=== PATIENT | female | born 1990 | race African-American/Black ===

== ENCOUNTER 2020-03-25 14:15 | Inpatient (IN) ==
[2020-03-25] MEDS ORDERED: ONDANSETRON 4 MG/2 ML VIAL IV PRN (14:21)
[2020-03-25 14:51] LABS: Basophils % 0.3 % (0.0-0.8); Eosinophils % 0.6 % (0.00-10.9); Hematocrit 27.9 VOL% (35.7-47.0); Hemoglobin 9.6 GM/DL (12.0-16.0); Immature Granulocytes % 2.2 %; Immature Granulocytes Absolute 0.15 #; Lymphocytes # 1.5 10*3/uL (1.4-4.0); Lymphocytes % 22.7 % (21.3-54.2); Mean Corpuscular HGB Conc 34.4 GM/DL (32-36); Mean Corpuscular Volume 84.8 FL (87-102); Mean Platelet Volume 11.5 FL (9.6-12.0); Monocytes % 6.9 % (1.7-12.7); Neutrophils % 67.3 % (38.7-73.9); Platelet Count 130 T/CUMM (130-400); Red Blood Count 3.29 MC/CUMM (3.8-5.5); Red Cell Distribution Width 14.2 % (9.3-17.3); White Blood Count 6.7 T/CUMM (4-12)
[2020-03-25] MEDS ORDERED: BUTORPHANOL 2 MG/ML VIAL IV PRN (15:17)
[2020-03-25] MEDS ORDERED: BUTORPHANOL 1 MG/ML VIAL IV PRN (15:17)
[2020-03-25 15:22] LABS: Band Neutrophils 1 % (0-10); Lymphocytes 22 % (20-55); Platelet Estimate Adequate; Segmented Neutrophils 71 % (50-85); Total Cells Counted 100
[2020-03-25] MEDS ORDERED: FAMOTIDINE 20 MG/2 ML VIAL IV ONE (17:02)
[2020-03-25] MEDS ORDERED: ePHEDrine 50 MG/ML VIAL IV PRN (17:02)
[2020-03-25] MEDS ORDERED: diphenhydrAMINE 50 MG/1 ML VIAL IV PRN ×2 (17:02)
[2020-03-25] MEDS ORDERED: MEPERIDINE 50 MG/1 ML VIAL IM ONE ×2 (17:02→17:20)
[2020-03-25] MEDS ORDERED: NALOXONE 0.4 MG/ML VIAL IV PRN (17:02)
[2020-03-25] MEDS ORDERED: ONDANSETRON 4 MG/2 ML VIAL IV ONE (17:02)
[2020-03-25] MEDS ORDERED: CITRIC ACID/SODIUM CITRATE 30 ML UDCUP PO ONE (17:02)
[2020-03-25] MEDS ORDERED: hydrOXYzine HCL 25 MG/1 ML VIAL IM PRN (17:02)
[2020-03-25] MEDS ORDERED: PROMETHAZINE 25 MG/1 ML VIAL IM ONE ×2 (17:02)
[2020-03-25] MEDS ORDERED: fentaNYL 2 MCG/ROPIV 0.2% EPID 100 ML EPIDURAL SCH (17:30)
[2020-03-25 18:25] LABS: RPR Confirm - Less than 1 yr REACTIVE (Nonreactive)
[2020-03-25 20:08] LABS: Bilirubin,Urine Negative (Negative); Blood, Urine Negative (Negative); Glucose,Urine (UA) Negative (Negative); Hyaline Casts,Urine 1 /LPF (0-3); Ketones,Urine 20 mg/dL (Negative); Mucus,Urine Occasional /LPF (Occasional); Nitrite,Urine Negative (Negative); Protein,Urine Negative; RBC,Urine 1 /HPF (0-4); Squamous Epithelial Cell,Urine Occasional /HPF (0-10); Urine Appearance CLEAR (Clear); Urine Color Yellow (Yellow); Urine Specific Gravity 1.012 (1.001-1.035); WBC,Urine 1 /HPF (0-6)
[2020-03-26] MEDS ORDERED: TERBUTALINE 1 MG/1 ML VIAL ONE (01:49)
[2020-03-26] MEDS ORDERED: OXYTOCIN/LR 20 UNIT/1,000 ML BAG IV ONE ×3 (01:50→05:09)
[2020-03-26 02:31] LABS: Cord Venous Blood HCO3 18.7 MMOL/L; Cord Venous Blood PCO2 44.9 MMHG; Cord Venous Blood PO2 34.7
[2020-03-26] MEDS ORDERED: TERBUTALINE 1 MG/1 ML VIAL SUBCUT ONE (02:32)
[2020-03-26] MEDS ORDERED: LACTATED RINGERS 1,000 ML IV ONE (02:33)
[2020-03-26] MEDS ORDERED: HYDROCORTISONE 2.5% RECTAL CREAM 30 GM TUBE TOP PRN (05:09)
[2020-03-26] MEDS ORDERED: LANOLIN 50% CREAM 0.3 OZ TUBE TOP PRN (05:09)
[2020-03-26] MEDS ORDERED: MEASLES/MUMPS/RUBELLA VACCINE 0.5 ML VIAL SUBCUT ONE (05:09)
[2020-03-26] MEDS ORDERED: oxyCODONE/ACETAMINOPHEN 5-325 MG TABLET PO PRN (05:09)
[2020-03-26] MEDS ORDERED: ACETAMINOPHEN 325 MG TABLET PO PRN (05:09)
[2020-03-26] MEDS ORDERED: BISACODYL 10 MG SUPP RECTAL PRN (05:09)
[2020-03-26] MEDS ORDERED: RHO(D) IMMUNE GLOBULIN 300 MCG SYRINGE IM ONE (05:09)
[2020-03-26] MEDS ORDERED: WITCH HAZEL PADS 100/JAR TOP PRN (05:09)
[2020-03-26] MEDS ORDERED: DIPH/TET/ACEL PERT BOOSTER VACCINE 0.5 ML VIAL IM ONE (05:09)
[2020-03-26] MEDS ORDERED: BENZOCAINE 20%/MENTHOL 0.5% SPRAY 56 GM CAN TOP PRN (05:09)
[2020-03-26] MEDS: IBUPROFEN 800 MG TABLET PO PRN ×2 (05:30→17:40)
[2020-03-26] MEDS: DOCUSATE SODIUM 100 MG CAPSULE PO SCH ×2 (10:14→20:34)
[2020-03-26] MEDS: oxyCODONE/ACETAMINOPHEN 5-325 MG TABLET PO PRN (17:41)
[2020-03-27 06:55] LABS: Basophils % 0.2 % (0.0-0.8); Eosinophils % 0.4 % (0.00-10.9); Hematocrit 29.2 VOL% (35.7-47.0); Hemoglobin 9.8 GM/DL (12.0-16.0); Immature Granulocytes % 1.6 %; Immature Granulocytes Absolute 0.17 #; Lymphocytes # 1.4 10*3/uL (1.4-4.0); Lymphocytes % 13.4 % (21.3-54.2); Mean Corpuscular HGB Conc 33.6 GM/DL (32-36); Mean Corpuscular Volume 87.2 FL (87-102); Mean Platelet Volume 11.4 FL (9.6-12.0); Monocytes % 6.9 % (1.7-12.7); NRBC # 0.02 10*3/uL; Neutrophils % 77.5 % (38.7-73.9); Platelet Count 128 T/CUMM (130-400); Red Blood Count 3.35 MC/CUMM (3.8-5.5); Red Cell Distribution Width 14.5 % (9.3-17.3); White Blood Count 10.4 T/CUMM (4-12)
[2020-03-27 07:45] LABS: Platelet Estimate Adequate
[2020-03-27 07:47] LABS: Anisocytosis 2+
[2020-03-27] MEDS ORDERED: INFLUENZA VIRUS VACCINE 0.5 ML SYRINGE IM ONE (08:00)
[2020-03-27] MEDS: DOCUSATE SODIUM 100 MG CAPSULE PO SCH ×2 (09:07→20:05)
[2020-03-27] MEDS ORDERED: oxyCODONE/ACETAMINOPHEN 5-325 MG TABLET PO ONE (20:01)
[2020-03-27] MEDS: IBUPROFEN 800 MG TABLET PO PRN (20:04)
[2020-03-28] MEDS: IBUPROFEN 800 MG TABLET PO PRN (02:37)
[2020-03-28] MEDS: oxyCODONE/ACETAMINOPHEN 5-325 MG TABLET PO PRN (02:37)
[2020-03-28 08:59] VITALS: BP 131/89
[2020-03-28] MEDS ORDERED: INFLUENZA VIRUS VACCINE 0.5 ML SYRINGE IM ONE (09:17)
[2020-03-28] MEDS ORDERED: DIPH/TET/ACEL PERT BOOSTER VACCINE 0.5 ML VIAL IM ONE (09:17)
[2020-03-28] MEDS: DOCUSATE SODIUM 100 MG CAPSULE PO SCH (09:18)
== END 2020-03-28 12:50 | disposition home or self-care (01) | DRG 560 ==
LOC: N.LD 14:15 → N.OB 03-26 05:11
PROVIDERS: ADMIT Obstetrics & Gynecology; ATTEND Obstetrics & Gynecology

== ENCOUNTER 2021-04-27 09:52 | Inpatient (IN) ==
[2021-04-27] MEDS ORDERED: LIDOCAINE 1% 50 ML VIAL MISC INJ ONE (10:15)
[2021-04-27] MEDS ORDERED: MEPERIDINE 50 MG/1 ML VIAL IV PRN (10:15)
[2021-04-27] MEDS ORDERED: ONDANSETRON 4 MG/2 ML VIAL IV PRN (10:15)
[2021-04-27] MEDS ORDERED: BUTORPHANOL 2 MG/ML VIAL IV PRN (10:15)
[2021-04-27] MEDS ORDERED: hydrOXYzine HCL 25 MG/1 ML VIAL IM PRN (10:20)
[2021-04-27] MEDS ORDERED: ePHEDrine 50 MG/ML VIAL IV PRN (10:20)
[2021-04-27] MEDS ORDERED: diphenhydrAMINE 50 MG/1 ML VIAL IV PRN ×2 (10:20)
[2021-04-27] MEDS ORDERED: FAMOTIDINE 20 MG/2 ML VIAL IV ONE (10:20)
[2021-04-27] MEDS ORDERED: PROMETHAZINE 25 MG/1 ML VIAL IM ONE (10:20)
[2021-04-27] MEDS ORDERED: CITRIC ACID/SODIUM CITRATE 30 ML UDCUP PO ONE (10:20)
[2021-04-27] MEDS ORDERED: NALOXONE 0.4 MG/ML VIAL IV PRN (10:20)
[2021-04-27] MEDS ORDERED: LACTATED RINGERS 1,000 ML IV ONE (10:20)
[2021-04-27] MEDS ORDERED: LACTATED RINGERS 1,000 ML IV SCH ×2 (10:30→12:30)
[2021-04-27] MEDS ORDERED: fentaNYL 2 MCG/ROPIV 0.2% EPID 100 ML EPIDURAL SCH (10:30)
[2021-04-27 10:34] LABS: Basophils % 0.4 % (0.0-0.8); Eosinophils # 0.1 10*3/uL (0.0-0.87); Eosinophils % 0.9 % (0.00-10.9); Hematocrit 30.3 VOL% (35.7-47.0); Hemoglobin 9.8 GM/DL (12.0-16.0); Immature Granulocytes % 5.7 %; Lymphocytes # 1.7 10*3/uL (1.4-4.0); Lymphocytes % 23.9 % (21.3-54.2); Mean Corpuscular HGB Conc 32.3 GM/DL (32-36); Mean Corpuscular Volume 85.8 FL (87-102); Mean Platelet Volume 12.3 FL (9.6-12.0); Monocytes % 7.7 % (1.7-12.7); NRBC # 0.02 10*3/uL; Neutrophils % 61.4 % (38.7-73.9); Platelet Count 117 T/CUMM (130-400); Red Blood Count 3.53 MC/CUMM (3.8-5.5); Red Cell Distribution Width 14.7 % (9.3-17.3)
[2021-04-27 10:46] LABS: INR 0.9; PT Patient Result 9.8 SECS (10.5-12.0); Partial Thromboplastin Time 23.6 SECS (23.8-32.1)
[2021-04-27] MEDS ORDERED: AMPICILLIN INJ 2,000 MG in SODIUM CHLORIDE 0.9% 100 ML IV ONE (10:48)
[2021-04-27 10:51] LABS: Albumin 2.8 G/DL (3.4-5.0); Bilirubin,Direct 0.12 MG/DL (0.0-0.20); Bilirubin,Total 0.5 MG/DL (0.20-1.00); Calcium 8.9 MG/DL (8.5-10.1); Osmolality,Calculated 267.1 MOS/KG (273-304); Potassium 3.8 MMOL/L (3.5-5.1); Total Protein 7.4 G/DL (6.4-8.2); Uric Acid 4.9 MG/DL (2.6-6.0)
[2021-04-27] MEDS ORDERED: hydrALAZINE 20 MG/1 ML VIAL IV ONE (10:51)
[2021-04-27] MEDS ORDERED: SODIUM CHLORIDE 0.9% 100 ML IV ONE (10:57)
[2021-04-27 11:04] LABS: Anisocytosis 1+; Band Neutrophils 4 % (0-10); Eosinophils 3 % (0-10); Lymphocytes 27 % (20-55); Metamyelocytes 1 %; Platelet Estimate Adequate; Segmented Neutrophils 59 % (50-85); Tear Drop Cells Few; Total Cells Counted 100
[2021-04-27 11:24] LABS: Bilirubin,Urine Negative (Negative); Blood, Urine Moderate mg/dL (Negative); Glucose,Urine (UA) Negative (Negative); Ketones,Urine Negative (Negative); Nitrite,Urine Negative (Negative); Protein,Urine Negative; RBC,Urine 6 /HPF (0-4); Squamous Epithelial Cell,Urine Few /HPF (0-10); Urine Appearance CLEAR (Clear); Urine Color Yellow (Yellow); Urine Specific Gravity 1.011 (1.001-1.035); Urine Urobilinogen < 2.0 EU/DL (0.2-1.0)
[2021-04-27 11:26] LABS: Barbiturates Screen,Urine Negative (Negative); Benzodiazepines Screen,Urine Negative (Negative); Cannabinoid Screen,Urine Negative (Negative); Opiate Screen,Urine Negative (Negative); Phencyclidine Screen,Urine Negative (Negative)
[2021-04-27] MEDS ORDERED: OXYTOCIN/LR 20 UNIT/1,000 ML BAG IV ONE (11:27)
[2021-04-27] MEDS ORDERED: miSOPROStoL 200 MCG TABLET ONE (11:28)
[2021-04-27] MEDS ORDERED: TRANEXAMIC ACID 1,000 MG/10 ML VIAL ONE (11:28)
[2021-04-27] MEDS ORDERED: CARBOPROST TROMETHAMINE 250 MCG/ML AMP IM ONE (11:29)
[2021-04-27] MEDS ORDERED: METHYLERGONOVINE 0.2 MG/1 ML AMP ONE (11:29)
[2021-04-27 11:34] LABS: Protein/Creatinine Ratio,Urine 0.3 RATIO
[2021-04-27 11:50] LABS: Cord Arterial Blood HCO3 20.6 MMOL/L
[2021-04-27 11:55] LABS: Cord Venous Blood HCO3 22.4 MMOL/L; Cord Venous Blood PCO2 41.7 MMHG; Cord Venous Blood PO2 < 19.0 MMHG
[2021-04-27 12:09] LABS: RPR Confirm - Less than 1 yr REACTIVE (Nonreactive)
[2021-04-27] MEDS ORDERED: MAGNESIUM HYDROXIDE SUSP 30 ML UDCUP PO PRN (12:15)
[2021-04-27] MEDS ORDERED: BISACODYL 10 MG SUPP RECTAL PRN (12:15)
[2021-04-27] MEDS ORDERED: ACETAMINOPHEN 500 MG TABLET PO PRN (12:15)
[2021-04-27] MEDS: IBUPROFEN 800 MG TABLET PO PRN (14:09)
[2021-04-27 14:23] LABS: Rubella Antibody IgG Result Non-Reactive (NonReactive)
[2021-04-27 14:33] LABS: Hepatitis B Surface Ag Quant < 0.10 Index; Hepatitis B Surface Ag Result Non-Reactive (NonReactive)
[2021-04-27 14:43] LABS: HIV Antigen/Antibody Result Nonreactive (Nonreactive)
[2021-04-27] MEDS: DOCUSATE SODIUM 100 MG CAPSULE PO SCH (21:02)
[2021-04-28 05:51] LABS: Basophils % 0.4 % (0.0-0.8); Eosinophils # 0.1 10*3/uL (0.0-0.87); Eosinophils % 0.6 % (0.00-10.9); Hematocrit 27.3 VOL% (35.7-47.0); Immature Granulocytes % 2.8 %; Immature Granulocytes Absolute 0.27 #; Lymphocytes # 1.5 10*3/uL (1.4-4.0); Lymphocytes % 15.8 % (21.3-54.2); Mean Corpuscular Volume 86.4 FL (87-102); Mean Platelet Volume 11.1 FL (9.6-12.0); Monocytes % 7.7 % (1.7-12.7); NRBC # 0.02 10*3/uL; Neutrophils % 72.7 % (38.7-73.9); Platelet Count 109 T/CUMM (130-400); Red Blood Count 3.16 MC/CUMM (3.8-5.5); Red Cell Distribution Width 14.6 % (9.3-17.3); White Blood Count 9.5 T/CUMM (4-12)
[2021-04-28] MEDS ORDERED: ESCITALOPRAM 10 MG TABLET PO SCH (09:00)
[2021-04-28] MEDS: ESCITALOPRAM 10 MG TABLET PO SCH (09:09)
[2021-04-28] MEDS: DOCUSATE SODIUM 100 MG CAPSULE PO SCH ×2 (09:09→20:57)
[2021-04-28] MEDS: MULTIVITAMIN (PRENATAL) TABLET PO SCH (09:09)
[2021-04-28] MEDS: IBUPROFEN 800 MG TABLET PO PRN (11:26)
[2021-04-28] MEDS ORDERED: BENZOCAINE 20%/MENTHOL 0.5% SPRAY 56 GM CAN TOP PRN (11:32)
[2021-04-28] MEDS: hydroCHLOROthiazide 25 MG TABLET PO SCH (13:36)
[2021-04-29] MEDS: IBUPROFEN 800 MG TABLET PO PRN (01:39)
[2021-04-29] MEDS: MULTIVITAMIN (PRENATAL) TABLET PO SCH (08:54)
[2021-04-29] MEDS: hydroCHLOROthiazide 25 MG TABLET PO SCH (08:55)
[2021-04-29] MEDS: DOCUSATE SODIUM 100 MG CAPSULE PO SCH (08:56)
[2021-04-29] MEDS: ESCITALOPRAM 10 MG TABLET PO SCH (08:56)
[2021-04-29 09:28] VITALS: BP 142/90
[2021-04-29 10:59] LABS: Basophils # 0.1 10*3/uL (0.0-0.2); Basophils % 0.6 % (0.0-0.8); Eosinophils # 0.1 10*3/uL (0.0-0.87); Eosinophils % 0.8 % (0.00-10.9); Hematocrit 29.6 VOL% (35.7-47.0); Hemoglobin 9.9 GM/DL (12.0-16.0); Immature Granulocytes % 3.9 %; Immature Granulocytes Absolute 0.36 #; Lymphocytes # 1.9 10*3/uL (1.4-4.0); Lymphocytes % 20.8 % (21.3-54.2); Mean Corpuscular HGB Conc 33.4 GM/DL (32-36); Mean Corpuscular Volume 85.1 FL (87-102); Mean Platelet Volume 12.2 FL (9.6-12.0); Monocytes % 7.5 % (1.7-12.7); NRBC # 0.03 10*3/uL; Neutrophils % 66.4 % (38.7-73.9); Platelet Count 129 T/CUMM (130-400); Red Blood Count 3.48 MC/CUMM (3.8-5.5); Red Cell Distribution Width 14.5 % (9.3-17.3); White Blood Count 9.3 T/CUMM (4-12)
[2021-04-29 11:24] LABS: Albumin 2.6 G/DL (3.4-5.0); Bilirubin,Direct 0.11 MG/DL (0.0-0.20); Bilirubin,Total 0.7 MG/DL (0.20-1.00); Calcium 9.5 MG/DL (8.5-10.1); Osmolality,Calculated 263.4 MOS/KG (273-304); Uric Acid 5.4 MG/DL (2.6-6.0)
[2021-04-29 11:45] LABS: INR 0.9; PT Patient Result 9.9 SECS (10.5-12.0); Partial Thromboplastin Time 24.5 SECS (23.8-32.1)
[2021-04-29 11:52] LABS: Bilirubin,Urine Negative (Negative); Blood, Urine Large mg/dL (Negative); Glucose,Urine (UA) Negative (Negative); Ketones,Urine Negative (Negative); Nitrite,Urine Negative (Negative); Protein,Urine Negative; RBC,Urine 20 /HPF (0-4); Squamous Epithelial Cell,Urine Occasional /HPF (0-10); Urine Appearance CLEAR (Clear); Urine Color Yellow (Yellow); Urine Specific Gravity 1.008 (1.001-1.035); Urine Urobilinogen < 2.0 EU/DL (0.2-1.0)
[2021-04-29] MEDS ORDERED: DIPH/TET/ACEL PERT BOOSTER VACCINE 0.5 ML VIAL IM ONE (13:11)
[2021-04-29] MEDS ORDERED: MEASLES/MUMPS/RUBELLA VACCINE 0.5 ML VIAL SUBCUT ONE (13:12)
[2021-04-29 13:25] LABS: Protein/Creatinine Ratio,Urine 0.4 RATIO
== END 2021-04-29 14:30 | disposition home or self-care (01) | DRG 560 ==
LOC: N.LD 09:52 → N.OB 15:05
PROVIDERS: ADMIT Obstetrics & Gynecology; ATTEND Obstetrics & Gynecology